=== PATIENT | male | born 1940 | race Caucasian/White ===

== ENCOUNTER 2024-02-01 21:36 | Emergency (ER) | payer MEDICARE, OTHER | END 2024-02-01 23:31 | disposition home or self-care (01) | LOC: DL.ED 21:36 | DX: S63.8X1A Sprain of other part of right wrist and hand, initial encounter (principal); Z79.01 Long term (current) use of anticoagulants; W22.8XXA Striking against or struck by other objects, initial encounter | CPT/HCPCS: 73130-RT; 99282; 99283 ==